=== PATIENT | female | born 1995 | race Asian ===

== ENCOUNTER 2018-01-08 16:03 | Emergency (ER) | payer OTHER ==
[2018-01-08] MEDS ORDERED: predniSONE 20 MG TAB ONE (17:04)
[2018-01-08] MEDS ORDERED: Ibuprofen 800 MG TAB ONE (17:04)
== END 2018-01-08 17:24 | disposition home or self-care (01) ==
LOC: ERS 16:03
DX: K12.0 Recurrent oral aphthae (principal)
CPT/HCPCS: 99283; J7506